=== PATIENT | female | born 1995 | race Caucasian/White ===

== ENCOUNTER → 2021-06-28 | Outpatient (CLI) | payer BC ==
[2021-06-28 17:38] LABS: HEMATOCRIT 36.1 % (36.0-47.0); HEMOGLOBIN 12.2 g/dl (12.0-15.5); MEAN CORPUSCULAR HEMOGLOBIN 29.2 pg (27.0-33.0); MEAN CORPUSCULAR HGB CONC 33.8 g/dl (32.0-36.5); MEAN CORPUSCULAR VOLUME 86.4 fl (80.0-96.0); PLATELET COUNT, AUTOMATED 279 10^3/uL (150-450); RED BLOOD COUNT 4.18 10^6/uL (4.00-5.40); WHITE BLOOD COUNT 14.1 10^3/uL (4.0-10.0)
[2021-06-28 18:12] LABS: HEMOGLOBIN A1c 5.2 %
[2021-06-28 18:56] LABS: HEPATITIS C VIRUS ABY INDEX 0.1 INDEX (<0.8); HIV 1&2 SCREEN CENTAUR NEGATIVE (NEGATIVE)
[2021-06-28 20:47] LABS: GC DNA AMPLIFICATION NEGATIVE (NEGATIVE)
== END ==
LOC: M PLALAB 15:09
PROVIDERS: ATTEND Advanced Practice Midwife
DX: Z34.91 Encounter for supervision of normal pregnancy, unspecified, first trimester (principal); Z3A.09 9 weeks gestation of pregnancy

== ENCOUNTER → 2021-06-29 | Outpatient (CLI) | payer BC ==
[2021-06-29 14:06] LABS: HEMOGLOBIN A1c 5.2 %
== END ==
LOC: M PLALAB 09:17
PROVIDERS: ATTEND Advanced Practice Midwife
DX: Z12.4 Encounter for screening for malignant neoplasm of cervix (principal); Z3A.09 9 weeks gestation of pregnancy

== ENCOUNTER → 2021-08-09 | Outpatient (CLI) | payer BC | LOC: M WHC 09:23 | PROVIDERS: ATTEND Advanced Practice Midwife | DX: Z34.02 Encounter for supervision of normal first pregnancy, second trimester (principal) ==

== ENCOUNTER → 2021-09-02 | Outpatient (REF) | payer BC | LOC: M PLALAB 15:16 | PROVIDERS: ATTEND Advanced Practice Midwife | DX: Z34.92 Encounter for supervision of normal pregnancy, unspecified, second trimester (principal); Z53.9 Procedure and treatment not carried out, unspecified reason ==

== ENCOUNTER → 2021-09-07 | Outpatient (CLI) | payer BC | LOC: M WHC 14:15 | PROVIDERS: ATTEND Advanced Practice Midwife | DX: Z34.02 Encounter for supervision of normal first pregnancy, second trimester (principal); Z3A.22 22 weeks gestation of pregnancy ==

== ENCOUNTER → 2021-10-18 | Outpatient (CLI) | payer BC | LOC: M WHC 14:45 | PROVIDERS: ATTEND Specialist | DX: Z34.02 Encounter for supervision of normal first pregnancy, second trimester (principal) ==

== ENCOUNTER → 2021-10-18 | Outpatient (CLI) | payer BC ==
[2021-10-18 15:37] LABS: HEMATOCRIT 36.5 % (36.0-47.0); HEMOGLOBIN 12.2 g/dl (12.0-15.5); MEAN CORPUSCULAR HEMOGLOBIN 28.7 pg (27.0-33.0); MEAN CORPUSCULAR HGB CONC 33.4 g/dl (32.0-36.5); MEAN CORPUSCULAR VOLUME 85.9 fl (80.0-96.0); PLATELET COUNT, AUTOMATED 265 10^3/uL (150-450); RED BLOOD COUNT 4.25 10^6/uL (4.00-5.40)
== END ==
LOC: M PLALAB 13:21
PROVIDERS: ATTEND Advanced Practice Midwife
DX: Z34.92 Encounter for supervision of normal pregnancy, unspecified, second trimester (principal); Z3A.00 Weeks of gestation of pregnancy not specified

== ENCOUNTER → 2021-12-07 | Outpatient (REF) | payer BC | LOC: M SFHCWAGY 09:48 | PROVIDERS: ATTEND Specialist | DX: Z34.83 Encounter for supervision of other normal pregnancy, third trimester (principal) ==

== ENCOUNTER → 2021-12-20 | Outpatient (CLI) | payer BC | LOC: M WHC 08:08 | PROVIDERS: ATTEND Obstetrics & Gynecology | DX: Z34.93 Encounter for supervision of normal pregnancy, unspecified, third trimester (principal) ==

== ENCOUNTER 2021-12-23 02:59 | Inpatient (IN) | payer BC ==
[~2021-12-23] VITALS: Ht 157.5 cm; Wt 109.5 kg
[2021-12-23] VITALS (14 sets, daily range): BP systolic 104–143; BP diastolic 53–88
[2021-12-23] MEDS ORDERED: HOME MED LIST COMPLETE! XX SCH (03:25)
[2021-12-23 04:47] LABS: HEMATOCRIT 36.6 % (36.0-47.0); HEMOGLOBIN 11.9 g/dl (12.0-15.5); MEAN CORPUSCULAR HEMOGLOBIN 27.7 pg (27.0-33.0); MEAN CORPUSCULAR HGB CONC 32.5 g/dl (32.0-36.5); MEAN CORPUSCULAR VOLUME 85.3 fl (80.0-96.0); PLATELET COUNT, AUTOMATED 261 10^3/uL (150-450); RED BLOOD COUNT 4.29 10^6/uL (4.00-5.40); WHITE BLOOD COUNT 14.9 10^3/uL (4.0-10.0)
[2021-12-23] MEDS ORDERED: BUTORPHANOL 2 MG/ML INJ (J0595) IV ONE (05:35)
[2021-12-23] MEDS ORDERED: PROMETHAZINE 25MG/ML 1ML VIAL IV ONE (05:35)
[2021-12-23] MEDS ORDERED: OXYTOCIN 30 UNITS IN 0.9% NaCl 500ML IV BAG (J2590) As Ordered ONE (06:38)
[2021-12-23] MEDS ORDERED: LIDOCAINE 1% MDV 20ML VIAL As Ordered ONE ×2 (07:01→07:18)
[2021-12-23] MEDS ORDERED: OXYTOCIN DRIP 30 UNITS in IV 1 EA IV SCH (07:20)
[2021-12-23] MEDS ORDERED: DOCUSATE SODIUM 100MG CAPSULE PO PRN (07:20)
[2021-12-23] MEDS ORDERED: DIBUCAINE 1% OINTMENT 30GM TOP PRN (07:20)
[2021-12-23] MEDS ORDERED: METHYLERGONOVINE MALEATE 0.2 MG TAB PO PRN (07:20)
[2021-12-23] MEDS ORDERED: IBUPROFEN 600MG TAB PO PRN (07:20)
[2021-12-23] MEDS ORDERED: RHOGAM 300 MCG (1500 IU) INJ (J2790) IM SCH (07:20)
[2021-12-23] MEDS ORDERED: IBUPROFEN 800 MG TAB PO PRN (07:20)
[2021-12-23] MEDS ORDERED: ACETAMINOPHEN TAB 650MG DOSE (2X325MG) PO PRN (07:20)
[2021-12-23 07:21] LABS: CORD GAS ABE A -4.6; CORD GAS HCO3 A 21.2 MEQ/L; CORD GAS O2 SAT A 78.2 %; CORD GAS PCO2 A 41.5 mmHg; CORD GAS PH A 7.326 UNITS; CORD GAS PO2 A 36.8 mmHg; CORD GAS SBC A 20.3 MEQ/L; CORD GAS TCO2 A 22.5 MEQ/L
[2021-12-23 07:23] LABS: CORD GAS HCO3 V 20.1 MEQ/L; CORD GAS O2 SAT V 73.2 %; CORD GAS PH V 7.342 UNITS; CORD GAS PO2 V 33.6 mmHg; CORD GAS SBC V 19.8 MEQ/L; CORD GAS TCO2 V 21.3 MEQ/L
[2021-12-23] MEDS ORDERED: LIDOCAINE 1% MDV 20ML VIAL IM ONE (08:00)
[2021-12-23] MEDS: PRENATAL VITAMINS CHEWABLE TABLET PO SCH (09:00)
[2021-12-23] MEDS: ACETAMINOPHEN 500 MG TAB PO PRN (21:07)
[2021-12-24 06:00] VITALS: BP 131/76
[2021-12-24] MEDS: ACETAMINOPHEN 500 MG TAB PO PRN (08:55)
[2021-12-24] MEDS: PRENATAL VITAMINS CHEWABLE TABLET PO SCH (08:55)
[2021-12-25] MEDS ORDERED: MEASLES,MUMPS,RUBELLA VACCINE INJ (MMR-II) (90707) SC.IMMUN ONE (09:00)
== END 2021-12-24 17:35 | disposition home or self-care (01) | DRG 560 ==
LOC: M LDO 02:59 → M LDI 04:14 → M OBS 11:28
PROVIDERS: ADMIT Specialist; ATTEND Obstetrics & Gynecology
PROC: 10E0XZZ Delivery of Products of Conception, External Approach (ICD-10-PCS; principal; 2021-12-23)
PROC: 0KQM0ZZ Repair Perineum Muscle, Open Approach (ICD-10-PCS; 2021-12-23)
DX: O70.1 Second degree perineal laceration during delivery (principal); Z37.0 Single live birth; Z3A.38 38 weeks gestation of pregnancy

== ENCOUNTER → 2024-04-16 | Outpatient (CLI) | payer OTHER ==
[2024-04-16 18:54] LABS: HEMATOCRIT 40.2 % (36.0-47.0); HEMOGLOBIN 13.5 g/dl (12.0-15.5); MEAN CORPUSCULAR HGB CONC 33.6 g/dl (32.0-36.5); MEAN CORPUSCULAR VOLUME 86.3 fl (80.0-96.0); PLATELET COUNT, AUTOMATED 307 10^3/uL (150-450); RED BLOOD COUNT 4.66 10^6/uL (4.00-5.40)
[2024-04-16 19:48] LABS: HIV 1&2 SCREEN NEGATIVE (NEGATIVE)
[2024-04-16 19:56] LABS: HEPATITIS C VIRUS ABY INDEX 0.02 INDEX (<0.8)
[2024-04-16 20:15] LABS: GC DNA AMPLIFICATION NEGATIVE (NEGATIVE)
== END ==
LOC: M PLALAB 16:09
PROVIDERS: ATTEND Advanced Practice Midwife
DX: O99.211 Obesity complicating pregnancy, first trimester (principal)

== ENCOUNTER → 2024-06-16 | Outpatient (CLI) | payer OTHER | LOC: M WHC 07:04 | PROVIDERS: ATTEND Nurse Practitioner Family | DX: Z34.82 Encounter for supervision of other normal pregnancy, second trimester (principal) ==

== ENCOUNTER → 2024-08-06 | Outpatient (CLI) | payer OTHER ==
[2024-08-06 18:14] LABS: HEMATOCRIT 35.2 % (36.0-47.0); HEMOGLOBIN 11.5 g/dl (12.0-15.5); MEAN CORPUSCULAR HGB CONC 32.7 g/dl (32.0-36.5); MEAN CORPUSCULAR VOLUME 88.9 fl (80.0-96.0); PLATELET COUNT, AUTOMATED 305 10^3/uL (150-450); RED BLOOD COUNT 3.96 10^6/uL (4.00-5.40); WHITE BLOOD COUNT 17.2 10^3/uL (4.0-10.0)
[2024-08-06 18:35] LABS: GLUCOSE CHALLENGE TEST 1 HOUR 86 MG/DL (LESS THAN 140)
[2024-08-06 19:03] LABS: HIV 1&2 SCREEN NEGATIVE (NEGATIVE)
[2024-08-06 19:12] LABS: HEPATITIS C VIRUS ABY INDEX 0.13 INDEX (<0.8)
[2024-08-06 19:49] LABS: GC DNA AMPLIFICATION NEGATIVE (NEGATIVE)
== END ==
LOC: M PLALAB 14:22
PROVIDERS: ATTEND Nurse Practitioner Family
DX: Z34.80 Encounter for supervision of other normal pregnancy, unspecified trimester (principal)

== ENCOUNTER → 2024-10-13 | Outpatient (REF) | payer OTHER | LOC: M PLALAB 15:25 | PROVIDERS: ATTEND Nurse Practitioner Family | DX: Z36.89 Encounter for other specified antenatal screening (principal); Z3A.35 35 weeks gestation of pregnancy ==

== ENCOUNTER 2024-11-07 18:06 | Inpatient (IN) | payer OTHER ==
[2024-11-07] VITALS (7 sets, daily range): BP systolic 118–141; BP diastolic 56–81; O2SAT 98
[~2024-11-07] VITALS: Ht 160 cm; Wt 110.0 kg
[2024-11-07] MEDS ORDERED: HOME MED LIST COMPLETE! XX SCH (18:30)
[2024-11-07] MEDS ORDERED: TRANEXAMIC ACID INJection 1,000 MG in NS 100 ML IV PRN (19:00)
[2024-11-07] MEDS ORDERED: CARBOPROST TROMETHAMINE 250 MCG/ML AMP IM PRN (19:00)
[2024-11-07] MEDS ORDERED: METHYLERGONOVINE MALEATE 0.2MG/ML 1ML VIAL IM PRN (19:00)
[2024-11-07 19:27] LABS: HEMATOCRIT 35.6 % (36.0-47.0); HEMOGLOBIN 11.6 g/dl (12.0-15.5); MEAN CORPUSCULAR HEMOGLOBIN 26.7 pg (27.0-33.0); MEAN CORPUSCULAR HGB CONC 32.6 g/dl (32.0-36.5); PLATELET COUNT, AUTOMATED 299 10^3/uL (150-450); RED BLOOD COUNT 4.34 10^6/uL (4.00-5.40); WHITE BLOOD COUNT 17.4 10^3/uL (4.0-10.0)
[2024-11-07 20:38] LABS: HIV 1&2 SCREEN NEGATIVE (NEGATIVE)
[2024-11-07 20:46] LABS: HEPATITIS C VIRUS ABY INDEX 0.03 INDEX (<0.8)
[2024-11-07] MEDS: OXYTOCIN DRIP 30 UNITS in IV 1 EA IV PRN (21:11)
[2024-11-07] MEDS: LIDOCAINE 1% MDV 20ML VIAL INFIL PRN (21:11)
[2024-11-07] MEDS ORDERED: IBUPROFEN 600MG TAB PO PRN (21:20)
[2024-11-07] MEDS ORDERED: METHYLERGONOVINE MALEATE 0.2 MG TAB PO PRN (21:20)
[2024-11-07] MEDS ORDERED: DOCUSATE SODIUM 100MG CAPSULE PO PRN (21:20)
[2024-11-07] MEDS ORDERED: ANUSOL HC CREAM 30GM TOP PRN (21:20)
[2024-11-07] MEDS ORDERED: MOM 30ML SUSPENSION UDC PO PRN (21:20)
[2024-11-07] MEDS ORDERED: ACETAMINOPHEN 325 MG TAB PO PRN (21:20)
[2024-11-07] MEDS ORDERED: RHOGAM 300MCG (1500IU) INJ IM SCH (21:20)
[2024-11-07] MEDS: DIBUCAINE 1% OINTMENT 30GM TOP PRN (22:56)
[2024-11-07] MEDS: IBUPROFEN 800 MG TAB PO PRN (22:57)
[2024-11-08 06:00] VITALS: BP 112/66; O2SAT 98
[2024-11-08] MEDS: PRENATAL VITAMINS CHEWABLE TABLET PO SCH (09:31)
[2024-11-08 17:36] VITALS: BP 120/58; O2SAT 99
[2024-11-09] MEDS: ACETAMINOPHEN 500 MG TAB PO PRN (01:13)
[2024-11-09 06:00] VITALS: BP 103/57; O2SAT 97
[2024-11-09] MEDS ORDERED: IBUP80TA PO (08:53)
[2024-11-09] MEDS ORDERED: ACET-683 PO (08:53)
[2024-11-09] MEDS ORDERED: MEASLES,MUMPS,RUBELLA VACCINE INJ (MMR-II) SC.IMMUN ONE (09:00)
== END 2024-11-09 15:35 | disposition home or self-care (01) | DRG 560 ==
LOC: M LDO 18:06 → M LDI 19:07 → M OBS 22:48
PROVIDERS: ADMIT Advanced Practice Midwife; ATTEND Advanced Practice Midwife
PROC: 10E0XZZ Delivery of Products of Conception, External Approach (ICD-10-PCS; principal; 2024-11-07)
PROC: 0KQM0ZZ Repair Perineum Muscle, Open Approach (ICD-10-PCS; 2024-11-07)
DX: O69.81X0 Labor and delivery complicated by cord around neck, without compression, not applicable or unspecified (principal); O70.1 Second degree perineal laceration during delivery; Z3A.39 39 weeks gestation of pregnancy; Z88.0 Allergy status to penicillin; Z88.1 Allergy status to other antibiotic agents; Z88.8 Allergy status to other drugs, medicaments and biological substances; Z37.0 Single live birth

== ENCOUNTER → 2025-03-31 | Outpatient (REF) | payer OTHER ==
[~2025-03-31] MED LIST: ACET-683 PO; IBUP80TA PO
== END ==
LOC: M PLALAB 10:08
PROVIDERS: ATTEND Advanced Practice Midwife
DX: Z12.4 Encounter for screening for malignant neoplasm of cervix (principal)